=== PATIENT | male | born 1950 | race Caucasian/White ===

== ENCOUNTER 2024-04-15 06:12 | Day surgery (SDC) | payer OTHER ==
[~2024-04-15] VITALS: Ht 185.4 cm; Wt 159.7 kg
[~2024-04-15 06:12] MED LIST: Balanced Salt Epinephrine Irrigation Solution 500 mL IR SCH; Betamethasone D15 G1; Ketoconazole15 GM TP; LOSARTAN POTASS25 M2 PO; Lidocaine HCl/Pf 1% 5 ML VIAL XX SCH; MOME.1TO; Moxifloxacin HCL 0.5 MG/0.1 ML 0.4MLSYR RIGHTEYE SCH; NS 500 ML IV ONE; PHENYLEPHRINE\\TROPICAMIDE\\TETRACAINE OPHTHALMIC DILATING SOLN RIGHTEYE PRN; Povidone-Iodine 450 DROP/30 ML Solution RIGHTEYE SCH; Triamcinolone Inj Susp 40 MG / ML 1ML Vial INJ SCH
[2024-04-15] MEDS ORDERED: Aspir 8181 MG PO (06:31)
[2024-04-15] MEDS ORDERED: Triamcinolone Inj Susp 40 MG / ML 1ML Vial ONE (06:37)
[2024-04-15] MEDS ORDERED: Lidocaine HCl/Pf 1% 5 ML VIAL ONE (06:37)
[2024-04-15] MEDS ORDERED: NS 500 ML IV ONE (06:40)
--- NOTE | 2024-04-15 06:40 | NUR ---
04/15/24 0640 Kimberly Goldman AT 0629 PLEDGET AT 0630
[2024-04-15] MEDS ORDERED: FentaNYL Citrate 50 MCG/ML 2 ML Injection ONE (06:55)
[2024-04-15] MEDS ORDERED: Midazolam HCl 1MG / ML 2ML Vial ONE (06:56)
[2024-04-15] MEDS ORDERED: Tetracaine HCl 0.5% Opth Soln 15 ml RIGHTEYE ONE (07:33)
[2024-04-15] MEDS ORDERED: Phenylephrine Frt 10% Opth (ORSC) ONE (07:43)
[2024-04-15 07:56] VITALS: BP 130/77
== END 2024-04-15 08:15 | disposition home or self-care (01) ==
LOC: ORSCSDS 06:12
PROVIDERS: Ophthalmology
PROC: 08RJ3JZ Replacement of Right Lens with Synthetic Substitute, Percutaneous Approach (ICD-10-PCS; principal; 2024-04-15 07:30)
DX: H25.811 Combined forms of age-related cataract, right eye (principal); Z96.1 Presence of intraocular lens; G47.33 Obstructive sleep apnea (adult) (pediatric); R01.1 Cardiac murmur, unspecified; I10 Essential (primary) hypertension; E66.9 Obesity, unspecified; Z68.42 Body mass index [BMI] 45.0-49.9, adult; Z79.82 Long term (current) use of aspirin; Z79.899 Other long term (current) drug therapy
CPT/HCPCS: J2001; J2250; J3010; J3301; J7040; V2632